=== PATIENT | male | born 2000 ===

== ENCOUNTER 2021-05-21 22:08 | Emergency (ER) ==
[~2021-05-21] VITALS: Ht 193 cm; Wt 107.4 kg
[2021-05-21] MEDS ORDERED: ACET-861 PO (22:16)
[2021-05-21] MEDS ORDERED: IBUP80TA PO (22:16)
== END 2021-05-22 05:27 | disposition left against medical advice (07) ==
LOC: M ED 22:08
DX: Z53.29 Procedure and treatment not carried out because of patient's decision for other reasons (principal)